=== PATIENT | male | born 1980 | race Caucasian/White ===

== ENCOUNTER 2019-06-10 23:23 | Emergency (ER) | payer OTHER ==
[2019-06-10 23:38] VITALS: BP 134/86; PULSE 91; RESP 20; TEMP 97.9
[2019-06-10] MEDS ORDERED: LIDOCAINE 1% INJ 10MG/ML (20 ML MDV) SQ ONE (23:41)
[2019-06-10] MEDS ORDERED: DIPH,PERTUS(ACELL)TETVAC-LF 0.5 ML VIAL IM ONE (23:55)
--- NOTE | 2019-06-11 00:36 | ED ---
Wound/Laceration HPI - General Chief Complaint: Wound/Laceration Stated Complaint: R Toe Injury Time Seen by Provider: 06/10/19 23:39 Source: patient, family Mode of arrival: ambulatory Limitations: no limitations - History of Present Illness Initial Comments: Patient is a 38-year-old male presenting to the emergency department with a chief complaint of a toe laceration. Patient states that he woke up in the morning and in attempt to take his dog because it was barking, he hit the wall started and possibly a nail on the wall. Patient reports full range of motion and supple does report some bleeding at the site of injury. Patient does report a laceration on the plantar aspect of the right great toe. Patient is unaware of his tetanus status. Patient denies any numbness or tingling. Patient does report a throbbing ache. Patient denies taking medication to alleviate the symptoms. - Related Data Home Medications Medication Instructions Recorded Confirmed HYDROcodone/APAP 7.5-325MG [[facility] 1 - 2 tab PO Q6H PRN 04/22/16 04/27/16 7.5-325] Previous Rx's Medication Instructions Recorded HYDROcodone/APAP 10-325MG [[facility] 1 - 2 tab PO Q4HR PRN #60 tab 04/27/16 10] Allergies Allergy/AdvReac Type Severity Reaction Status Date / Time No Known Allergies Allergy Verified 06/10/19 23:38 Review of Systems ROS Statement: Those systems with pertinent positive or pertinent negative responses have been documented in the HPI. ROS Other: All systems not noted in ROS Statement are negative. Past Medical History Additional Past Medical History / Comment(s): FX RT ANKLE R/T FALL History of Any Multi-Drug Resistant Organisms: None Reported Past Surgical History: Orthopedic Surgery Past Anesthesia/Blood Transfusion Reactions: No Reported Reaction Additional Past Anesthesia/Blood Transfusion Reaction / Comment(s): NO PRIOR S URGICAL HX Past Psychological History: No Psychological Hx Reported Smoking Status: Never smoker Past Alcohol Use History: Occasional Past Drug Use History: None Reported - Past Family History Mother Family Medical History: No Reported History General Exam Limitations: no limitations General appearance: alert, in no apparent distress Head exam: Present: atraumatic, normocephalic, normal inspection Eye exam: Present: normal appearance, PERRL, EOMI Pupils: Present: normal accommodation ENT exam: Present: normal exam, mucous membranes moist Neck exam: Present: normal inspection, full ROM Respiratory exam: Present: normal lung sounds bilaterally Cardiovascular Exam: Present: regular rate, normal rhythm, normal heart sounds Extremities exam: Present: full ROM (Full range of motion of the left big toe.), tenderness (Tenderness at the site of laceration. No foot or ankle pain. Patient is able to ambulate without issues.), normal capillary refill, other (+2 dorsalis pedis and posterior tibialis bilaterally.). Absent: normal inspection (Stellite laceration on the plantar aspect of the right big toe. Some active bleeding.) Back exam: Present: normal inspection, full ROM Neurological exam: Present: alert, oriented X3 Psychiatric exam: Present: normal affect, normal mood Skin exam: Present: warm, dry, intact, normal color Course Vital Signs 06/10/19 23:34 Temperature 97.9 F Pulse Rate 91 Respiratory 20 Rate Blood Pressure 134/86 O2 Sat by Pulse 99 Oximetry Procedures - Laceration Laceration #1 Consent Obtained: verbal consent Indication: laceration Site: other (Toe, right) Size (cm): 5 Description: stellate, flap Depth: simple, single layer Sedation/Analgesia: none Anesthetic Used: lidocaine 1% Anesthesia Technique: local infiltration, nerve block (Digital block) Amount (mls): 5 Pre-repair: irrigated extensively Type of Sutures: nylon Size of Sutures: 4-0 Number of Sutures: 7 Technique: simple, interrupted Complications: pain Patient Tolerated Procedure: well, no complications Medical Decision Making - Medical Decision Making Patient is a 38-year-old male presenting to emergency Department with the chief complaint of a laceration. Exam patient does have a stellate laceration measuring approximately 1.5 cm in all 3 directions. There is minimal active bleeding. Patient does have full range of motion of the big toe. Patient is able any without any issues in the foot. Digital block and local anesthesia was administered using lidocaine. Laceration site was repaired with 7 sutures. Patient advised to return to emergency department in 10-14 days. Patient was given laceration instructions. Strict return parameters were thoroughly discussed with patient was understanding and agreeable. Tetanus vaccine administered. Case discussed with physician. Disposition Clinical Impression: Laceration Disposition: HOME SELF-CARE Condition: Stable Instructions (If sedation given, give patient instructions): Care For Your Stitches (DC), Laceration (DC) Additional Instructions: Please follow laceration instructions. Return to emergency department in 10-14 days for suture removal or sooner if symptoms worsen. Alternate between Tylenol and Motrin for pain control. Is patient prescribed a controlled substance at d/c from ED?: No Referrals: None,Stated [Primary Care Provider] - 1-2 days Time of Disposition: 00:34
== END 2019-06-11 00:49 | disposition home or self-care (01) ==
LOC: EC 23:23
DX: S91.111A Laceration without foreign body of right great toe without damage to nail, initial encounter (principal); Z23 Encounter for immunization; W22.09XA Striking against other stationary object, initial encounter; Y93.89 Activity, other specified; Y92.009 Unspecified place in unspecified non-institutional (private) residence as the place of occurrence of the external cause
CPT/HCPCS: 90715; 99283; 90471; 12002; 64450; J2001

== ENCOUNTER → 2020-01-03 | Outpatient (CLI) | payer OTHER | END | disposition home or self-care (01) | LOC: LABWHC1 10:59 | PROVIDERS: ATTEND Obstetrics & Gynecology | DX: Z20.828 Contact with and (suspected) exposure to other viral communicable diseases (principal) | CPT/HCPCS: U0003; C9803 ==

== ENCOUNTER → 2022-07-15 | Outpatient (CLI) | payer OTHER | END | disposition home or self-care (01) | LOC: RADUSWWP 07:39 | PROVIDERS: ATTEND Family Medicine | DX: Z53.9 Procedure and treatment not carried out, unspecified reason (principal) ==